=== PATIENT | male | born 1980 | race Caucasian/White ===

== ENCOUNTER 2018-07-15 06:16 | Observation (INO) | payer BC, OTHER ==
--- NOTE | 2018-07-13 15:37 | PCM.HPR ---
H & P Addendum review - H & P Addendum Review Date of Original H & P: 06/24/18 Date Reviewed: 07/15/18 Patient was Examined: No Changes
[2018-07-15] MEDS ORDERED: Lactated Ringers 1,000 ML IV SCH (06:45)
--- NOTE | 2018-07-15 07:17 | PCM.PREANE ---
Preanesthetic Assessment - Anesthesia/Transfusion/Family Hx Anesthesia History: Prior Anesthesia Without Reaction Family History of Anesthesia Reaction: No Transfusion History: No Prior Transfusion(s) Intubation History: Unknown - Review of Systems General: No Symptoms Pulmonary: No Symptoms Cardiovascular: No Symptoms Gastrointestinal: No Symptoms Neurological: No Symptoms Other: Reports: None - Physical Assessment O2 Sat by Pulse Oximetry: 95 Respiratory Rate: 16 Vital Signs: Last Vital Signs Temp 36.3 C 07/15/18 07:11 Pulse 61 07/15/18 07:11 Resp 16 07/15/18 07:11 BP 124/81 07/15/18 07:11 Pulse Ox 95 07/15/18 07:11 Height: 1.75 m Weight: 98.883 kg ASA Class: 2 Mental Status: Alert & Oriented x3 Airway Class: Mallampati = 2 Dentition: Reports: Normal Dentition, Mcguffey(s) (x2 upper right (side)) Thyro-Mental Finger Breadths: 3 Mouth Opening Finger Breadths: 3 ROM/Head Extension: Full Lungs: Clear to Auscultation, Normal Respiratory Effort Cardiovascular: Regular Rate, Regular Rhythm - Allergies Allergies/Adverse Reactions: Allergies Allergy/AdvReac Type Severity Reaction Status Date / Time acetaminophen [From Percocet] Allergy achy joints Verified 07/12/18 08:36 oxycodone [From Percocet] Allergy achy joints Verified 07/12/18 08:36 - Blood Blood Available: No - Anesthesia Plan Pre-Op Medication Ordered: None - Acknowledgements Anesthesia Type Planned: General Anesthesia Pt an Appropriate Candidate for the Planned Anesthesia: Yes Alternatives and Risks of Anesthesia Discussed w Pt/Guardian: Yes Pt/Guardian Understands and Agrees with Anesthesia Plan: Yes PreAnesthesia Questionnaire HEENT History: Reports: Other (See Below) (deviated septum, nasal obstruction, obstruction of paranasal sinus, sleep apnea, long uvula) Respiratory History: Reports: Asthma, Other (See Below) Other Respiratory History: asthma as a child Gastrointestinal History: Reports: Other (See Below) Other Gastrointestinal History: occasional heartburn Genitourinary History: Reports: None Musculoskeletal History: Reports: Fracture Endocrine/Metabolic History: Reports: Obesity/BMI 30+ - Past Surgical History Head Surgeries/Procedures: Reports: None Male Surgical History: Reports: Vasectomy Musculoskeletal Surgical History: Reports: Other (See Below) Other Musculoskeletal Surgeries/Procedures:: surgical tx for fx left wrist, bunionectomy-left foot - SUBSTANCE USE Smoking Status *Q: Former Smoker Recreational Drug Use History: No - HOME MEDS Home Medications: Home Meds Ascorbate Calcium [Vitamin C] 2 tab PO DAILY 07/12/18 [History] Echinacea Purpurea Extract [Echinacea] 125 mg PO DAILY 07/12/18 [History] Fish Oil/[place]-3 Fatty Acids [Fish Oil 1,000 MG] 1,000 mg PO DAILY 07/12/18 [ History] L.acidoph,Paracasei, B.lactis [Probiotic] 1 tab PO DAILY 07/12/18 [History] Tadalafil 20 mg PO ASDIRECTED PRN 07/12/18 [History] Vitamin E 1,000 units PO DAILY 07/12/18 [History] - CURRENT (IN HOUSE) MEDS Current Meds: Current Medications Lactated Ringer's (Ringers, Lactated) 1,000 mls @ 125 mls/hr IV ASDIRECTED RAMO Last Admin: 07/15/18 07:09 Dose: 125 mls/hr
[2018-07-15] MEDS ORDERED: Oxymetazoline 0.05% Nasal Spray 15 ML Bottle ONE (07:26)
[2018-07-15] MEDS ORDERED: Aloe Vera/Sodium Chloride Gel 14.1 GM Tube ONE (07:26)
[2018-07-15] MEDS ORDERED: Lidocaine 2% with EPINEPHrine 1:100,000 20 ML MDV ONE (07:27)
[2018-07-15] MEDS ORDERED: Bupivacaine 25%/EPINEPHrine/PF 30 ML ONE (07:33)
[2018-07-15] MEDS ORDERED: fentaNYL 100 MCG/2 ML SDV ONE (07:42)
[2018-07-15] MEDS ORDERED: Lidocaine 2% 5 ML SDV ONE (07:42)
[2018-07-15] MEDS ORDERED: Propofol 200 MG/20 ML SDV ONE ×3 (07:42→08:29)
[2018-07-15] MEDS ORDERED: Rocuronium 10 MG/ML 10 ML Syringe ONE (07:42)
[2018-07-15] MEDS ORDERED: Midazolam 1 MG/ML 2 ML SDV ONE (07:42)
--- NOTE | 2018-07-15 08:14 | PCM.HPR ---
H & P Addendum review - H & P Addendum Review Date of Original H & P: 06/24/18 Date Reviewed: 07/15/18 Time Reviewed: 07:50 Patient was Examined: No Changes
--- NOTE | 2018-07-15 08:19 | PCM.OPNOTE ---
- General Post-Op/Procedure Note Date of Surgery/Procedure: 07/15/18 Condition: Good Free Text/Narrative:: Diagnosis:Nasal obstruction, snoring, deviated nasal septum, elongated uvula, sleep disordered breathing Procedure: Partial uvulectomy, Nasal septoplasty Surgeon: Lawanda Bradford MD Anesthesia:General Anesthesiologist:Zina Lema CRNA Date of procedure: Indications:Nasal obstruction, snoring, deviated nasal septum, elongated uvula, sleep disordered breathing Findings: Right deviated nasal septum; dislocation of the nasal septum off the maxillary crest into the right nasal cavity; missing cartilage along the floor of nasal cavity; dry crusty mucosa anterior right nasal septum which appeared blanched. Operation Details: An informed consent was obtained. A time out was performed and the patient was brought back to the operating room. Gen. anesthesia was administered with an endotracheal tube. Bilateral nasal cavities were packed with oxymetazoline 0.05 % soaked cottonoid pledgets. The patient was then prepped and draped in a standard fashion. The pledgets were then removed. Nasal septum was infiltrated with 2% lidocaine 1: 100, 000 epinephrine in a standard fashion-a total of 7 mils was used. A left sided hannah-transfixation incision was performed. A left sided mucoperichondrial flap was elevated-dissection was commenced with 2 mm osteotome and further carried out with combination of keli and [place] elevators. Posteriorly the flap was continued as a muco periosteal flap. Sharp and careful dissection was performed to lift the flaps off the left sided spur along the floor. A posterior chondrotomy was performed. The thecal incision was made in the nasal septum approximately 1 cm behind the cartilage of septum and the contralateral right sided mucoperichondrial and periosteal flaps were elevated similarly fashion as on the left. A brown scissor was used and the inferior aspect of perpendicular plate of the ethmoid was removed. Posterior extension off the septal cartilage into the bony septum was removed and also an adjacent tendons vertical strip of cartilage was removed. Similarly a vertical strip of cartilage approximately 5 mm was removed leaving adequate caudal septal support and dorsal support likewise. Subsequent to this the nasal septum was positioned towards the midline. There was a very small tear along the floor on the right side ; flap was intact on the left side. Flap incision was sutured with 3-0 Vicryl. Mattress sutures were also performed. Wu splints were inserted bilaterally coated in bacitracin and secured to the nasal columella with 2-0 Prolene suture Specimens: none IV fluids: 1200 ml Blood loss: 5 ml Blood products: nil Disposition: PACU for recovery Follow up: In 1 week for removal of splints
[2018-07-15] MEDS ORDERED: Dexamethasone 4 MG/ML 5 ML MDV ONE (08:20)
[2018-07-15] MEDS ORDERED: HYDROmorphone 2 MG/ML Syringe ONE (08:22)
[2018-07-15] MEDS ORDERED: Ondansetron 4 MG/2 ML SDV ONE (09:01)
[2018-07-15] MEDS ORDERED: Meperidine PF 25 MG/ML Syringe IV PRN (09:03)
[2018-07-15] MEDS ORDERED: Promethazine 25 MG/ML SDV IM PRN (09:05)
[2018-07-15] MEDS ORDERED: fentaNYL 100 MCG/2 ML SDV IVPUSH PRN (09:05)
[2018-07-15] MEDS ORDERED: ePHEDrine 50 MG/ML SDV ONE (09:20)
[2018-07-15] MEDS: Ibuprofen Susp 100 MG/5 ML 10 ML UD Cup PO PRN ×2 (10:59→20:57)
[2018-07-15] MEDS ORDERED: Acetaminophen 1,000 MG in Premix Bag 1 BAG IV ONE (11:00)
--- NOTE | 2018-07-15 11:04 | PCM.POSTAN ---
POST ANESTHESIA ASSESSMENT - MENTAL STATUS Mental Status: Alert, Oriented - RESPIRATORY Respiratory Status: Respiratory Rate WNL, Airway Patent, O2 Saturation Stable - CARDIOVASCULAR CV Status: Pulse Rate WNL, Blood Pressure Stable - GASTROINTESTINAL GI Status: No Symptoms - PAIN Pain Score: 5 - POST OP HYDRATION Hydration Status: Adequate & Stable - OBSERVATIONS Free Text/Narrative:: no anesthesia problems
[2018-07-15] MEDS: traMADol 50 MG Tab PO PRN ×2 (12:25→17:34)
--- NOTE | 2018-07-15 17:07 | PCM.SN ---
- Free Text/Narrative Note: Notified by nursing that patient on RA has SpO2 79-80% while sleeping. Face tent was replaced, SpO2 on blow-by is maintaining SpO2 >92%. Dr. Bradford was notified and patient is being kept for extended monitoring.
[2018-07-15] MEDS: Sodium Chloride 0.65% Nasal Spray 45 ML Bottle NAS SCH ×2 (17:43→20:56)
[2018-07-15] MEDS: Bacitracin Oint 28.35 GM Tube TOP SCH (21:08)
[2018-07-16] MEDS: Sodium Chloride 0.65% Nasal Spray 45 ML Bottle NAS SCH ×6 (00:19→12:03)
[2018-07-16] MEDS: traMADol 50 MG Tab PO PRN ×2 (00:22→10:41)
[2018-07-16] MEDS: Ibuprofen Susp 100 MG/5 ML 10 ML UD Cup PO PRN (04:55)
[2018-07-16] MEDS: Bacitracin Oint 28.35 GM Tube TOP SCH (06:20)
[2018-07-16] MEDS: Acetaminophen 325 MG Tab PO PRN ×2 (08:05→14:18)
--- NOTE | 2018-07-16 08:50 | PCM.SN ---
- Free Text/Narrative Note: Patient is alert and oriented this AM, states "Feeling well". Talked with patient about the desaturations he had last evening. States his DIANNA study a couple of weeks ago was inconclusive. Spoke with Dr Bradford regarding the patients status this AM, his SpO2 this AM during my conversation with him is 90- 91% on RA. The patient did have 2-3 periods of desaturation during the night that resolved spontaneously or with light stimulation. Currently, we will continue to watch the patient for a few more hours this AM and encourage aggressive incentive spirometry and ambulation. We will reassess later this afternoon to see if the patient is ready for discharge.
--- NOTE | 2018-07-16 14:03 | PCM48HPAN ---
Post Anesthesia Note - EVALUATION WITHIN 48HRS OF ANESTHETIC Vital Signs in Normal Range: Yes Patient Participated in Evaluation: Yes Respiratory Function Stable: Yes Airway Patent: Yes Cardiovascular Function Stable: Yes Hydration Status Stable: Yes Pain Control Satisfactory: Yes Nausea and Vomiting Control Satisfactory: Yes Mental Status Recovered: Yes Pulse Rate: 67 SaO2: 95 Resp Rate: 16 Blood Pressure: 138/89 - COMMENTS/OBSERVATIONS Free Text/Narrative:: Patient re-evaluated from this morning. Oxygen saturations maintained without any supplemental oxygenation. Patient has been up walking without any shortness of breath. Vital signs remain stable. Encouraged patient to follow through with post op appointment with Dr. Bradford, which is already scheduled next week. No concerns at this time.
== END 2018-07-16 14:25 | disposition home or self-care (01) ==
LOC: MW.SDS 06:16 → MW.ICU 15:42
PROVIDERS: ADMIT Pediatrics; ATTEND Otolaryngology
DX: J34.89 Other specified disorders of nose and nasal sinuses (principal); J34.2 Deviated nasal septum; Q38.6 Other congenital malformations of mouth; N52.9 Male erectile dysfunction, unspecified; G47.30 Sleep apnea, unspecified; J45.909 Unspecified asthma, uncomplicated; E66.9 Obesity, unspecified; Z68.32 Body mass index [BMI] 32.0-32.9, adult; Z79.899 Other long term (current) drug therapy; Z88.5 Allergy status to narcotic agent; Z88.6 Allergy status to analgesic agent; Z87.891 Personal history of nicotine dependence
CPT/HCPCS: 30520; 42140; A9270; J0131; J1100; J1170; J2001; J2250; J2405; J2704; J3010; J7120; G0378

== ENCOUNTER 2020-12-21 09:35 | Emergency (ER) | payer BC ==
[2020-12-21] MEDS ORDERED: Tetracaine HCl/PF 0.5% 4 ML Bottle EYERT STA (09:47)
--- NOTE | 2020-12-21 10:13 | EDM.PDOC ---
ED HPI GENERAL MEDICAL PROBLEM - General Chief Complaint: Eye Problems Stated Complaint: METAL IN R EYE Time Seen by Provider: 12/21/20 09:55 - History of Present Illness INITIAL COMMENTS - FREE TEXT/NARRATIVE: History of present illness: [] Patient got something in his right eye yesterday while he was grinding metal. He was wearing goggles. He is a body welder. He has had foreign matter in his eye before. He has a foreign body sensation and he tried to pull his lid down over the lower lip to see if he can get something out from under his lid. He continues to feel like something is in his right eye. His vision has been af fected. Review of systems: As per history of present illness and below otherwise all systems reviewed and negative. Past medical history: As per history of present illness and as reviewed below otherwise noncontributory. Surgical history: As per history of present illness and as reviewed below otherwise noncontributory. Social history: No reported history of drug or alcohol abuse. Family history: As per history of present illness and as reviewed below otherwise noncontributory. Physical exam: Constitutional - well developed, well-nourished and in no acute distress HEENT - normocephalic, no evidence of trauma - external nose and mouth normal - no mass in neck and no JVD - mucosae moist EYES -lid eversion is negative. Fluorescein is negative. Anterior chambers clear. Inspection with [place] lamp there appeared to be what might be a rust ring at about 10:00 near the edge of the iris. With slit lamp the cornea is clear and has no disruption. He has multiple small pigmented freckles on the iris and the object that looked like a rust ring is actually a discolored portion of the iris. Full EOM, PERRL, no icterus - no evidence of inflammation, injection, or drainage Respiratory - no respiratory distress, equal bilateral expansion Musculoskeletal no gross deformity of long bones or joints - no tenderness, swelling or edema Neurologic - Alert and oriented times four - CN II-XII grossly intact - motor sensory and coordination symmetrically normal Psychiatric - appropriate mood and affect with normal thought content Hematologic - No petechiae or purpura - mucosa appropriate color and sclera not pale - normal nail bed color and refill Integument - no rash or evidence of trauma - normal turgor Diagnostics: [] Therapeutics: [] Impression: [] Plan: [] Definitive disposition and diagnosis as appropriate pending reevaluation and review of above. Right Eye Pain Score (Numeric/FACES): 6 - Related Data Allergies Allergy/AdvReac Type Severity Reaction Status Date / Time acetaminophen [From Percocet] Allergy achy joints Verified 07/12/18 08:36 oxycodone [From Percocet] Allergy achy joints Verified 07/12/18 08:36 Home Meds: Home Meds Gentamicin [Garamycin 0.3% Ophth Soln] 2 drop EYERT TID #5 ml 12/21/20 [Rx] Past Medical History HEENT History: Reports: Other (See Below) Respiratory History: Reports: Asthma, Other (See Below) Other Respiratory History: asthma as a child Gastrointestinal History: Reports: Other (See Below) Other Gastrointestinal History: occasional heartburn Genitourinary History: Reports: None Musculoskeletal History: Reports: Fracture Endocrine/Metabolic History: Reports: Obesity/BMI 30+ - Infectious Disease History Infectious Disease History: Reports: None - Past Surgical History Head Surgeries/Procedures: Reports: None Male Surgical History: Reports: Vasectomy Musculoskeletal Surgical History: Reports: Other (See Below) Other Musculoskeletal Surgeries/Procedures:: surgical tx for fx left wrist, bunionectomy-left foot Social & Family History - Family History Family Medical History: No Pertinent Family History - Tobacco Use Tobacco Use Status *Q: Never Tobacco User - Caffeine Use Caffeine Use: Reports: None Other Caffeine Use: 3-4 energy drinks/month a cup of coffee ever day - Recreational Drug Use Recreational Drug Use: No ED ROS GENERAL - Review of Systems Review Of Systems: Comprehensive ROS is negative, except as noted in HPI. ED EXAM GENERAL W FULL EYE - Physical Exam Exam: See Below Text/Narrative:: My physical exam as in the HPI Course - Vital Signs Text/Narrative:: 3 field to reveal a foreign body. Patient sent home on eyedrops in case what ever was in his eye has caused irritation that might cause infection. Last Recorded V/S: Last Vital Signs Temp 35.9 C L 12/21/20 09:51 Pulse 67 12/21/20 09:51 Resp 16 12/21/20 09:51 BP 140/78 12/21/20 09:51 Pulse Ox 95 12/21/20 09:51 - Orders/Labs/Meds Orders: Active Orders 24 hr Category Date Time Status Orbits/Foreign Body Rt [FB Localized Eye Rt] [CR] Stat Exams 12/21/20 10:25 Taken Meds: Medications Discontinued Medications Generic Name Dose Route Start Last Admin Trade Name Yaw PRN Reason Stop Dose Admin Tetracaine HCl 0.5 ml 12/21/20 09:47 12/21/20 10:39 Tetracaine Hcl/Pf 0.5% 4 Ml Bottle EYERT 12/21/20 09:48 0.5 ml STAT STA Administration Departure - Departure Time of Disposition: 11:04 Disposition: Home, Self-Care 01 Condition: Good Clinical Impression: Conjunctivitis - Discharge Information Prescriptions: Gentamicin [Garamycin 0.3% Ophth Soln] 2 drop EYERT TID #5 ml Instructions: Eye Foreign Body, [id number] Referrals: PCP,None [Primary Care Provider] - Kaden Carrasquillo MD [Ordering Only Provider] - Forms: ED Department Discharge Additional Instructions: Call her eye doctor if you continue to have symptoms. He should see you within a few days because if there was a microscopic foreign body that was still in your eye a rust ring may develop. [facility] - Primary Care [address] [place] [address] [place] [address] The following information is given to patients seen in the emergency department who are being discharged to home. This information is to outline your options for follow-up care. We provide all patients seen in our emergency department with a follow-up referral. The need for follow-up, as well as the timing and circumstances, are variable depending upon the specifics of your emergency department visit. If you don't have a primary care physician on staff, we will provide you with a referral. We always advise you to contact your personal physician following an emergency department visit to inform them of the circumstance of the visit and for follow-up with them and/or the need for any referrals to a consulting specialist. The emergency department will also refer you to a specialist when appropriate. This referral assures that you have the opportunity for follow-up care with a specialist. All of these measure are taken in an effort to provide you with optimal care, which includes your follow-up. Under all circumstances we always encourage you to contact your private physician who remains a resource for coordinating your care. When calling for follow-up care, please make the office aware that this follow-up is from your recent emergency room visit. If for any reason you are refused follow-up, please contact the [facility] Emergency Department at and asked to speak to the emergency department charge nurse. Sepsis Event Note (ED) - Evaluation Sepsis Screening Result: No Definite Risk - Focused Exam Vital Signs: Vital Signs Temp Pulse Resp BP Pulse Ox 12/21/20 09:51 35.9 C L 67 16 140/78 95 - My Orders Last 24 Hours: My Active Orders 12/21/20 10:25 Orbits/Foreign Body Rt [FB Localized Eye Rt] [CR] Stat - Assessment/Plan Last 24 Hours: My Active Orders 12/21/20 10:25 Orbits/Foreign Body Rt [FB Localized Eye Rt] [CR] Stat
--- NOTE | 2020-12-21 11:45 | CR ---
HISTORY: Foreign body right eye. Patient was using a sheet metal contractor. TECHNIQUE: One view of the orbits. COMPARISON: No prior. FINDINGS: No radiopaque foreign body projecting over the orbits or included intracranial space. The maxillary and frontal sinuses are clear. IMPRESSION: No radiopaque foreign body projecting over the orbits or visualized intracranial space. Dictated by Roberto Ford MD @ 12/21/2020 11:44:[address] Roberto Ford @ Dec 21 2020 11:44AM
== END 2020-12-21 11:15 | disposition home or self-care (01) ==
LOC: MW.ED 09:35
DX: H10.9 Unspecified conjunctivitis (principal); E66.9 Obesity, unspecified; Z68.32 Body mass index [BMI] 32.0-32.9, adult; Z88.5 Allergy status to narcotic agent; Z88.6 Allergy status to analgesic agent
CPT/HCPCS: 70030-26-RT; 70030-RT; 99283; 99283-25